=== PATIENT | male | born 1940 | race Caucasian/White ===

== ENCOUNTER 2016-07-07 09:00 | Inpatient (IN) | payer MEDICARE, BC ==
[~2016-07-07] VITALS: Ht 170.2 cm; Wt 77.9 kg
--- NOTE | ~2016-07-07 | DS ---
PATIENT'S NAME: [facility] AGE: 75 Y [address] ROOM: [place] [address] LOCATION: [facility] ADMIT DATE: 07/22/2016 Discharge Summary DISCHARGE DATE: 07/24/2016 FAMILY PHYSICIAN: Wayne Kevin MD ATTENDING PHYSICIAN: William Rose PRIMARY DIAGNOSIS: Osteoarthritis, left hip. SECONDARY DIAGNOSES: 1. History of alcohol abuse. 2. Restless legs syndrome. 3. Insomnia. 4. Hyperlipidemia. PROCEDURE PERFORMED: Left total hip arthroplasty. HISTORY: The patient is a 75-year-old male, who presents with advanced left hip degenerative joint disease and associated severely compromised activities of daily living. The patient has decided to proceed with total left hip arthroplasty after having been thoroughly counseled regarding the risks, benefits, limitations and alternatives. Please refer to the outpatient clinic notes and admission history and physical for this patient. HOSPITAL COURSE: The patient underwent a total left hip arthroplasty on 07/22/2016 without complications. Spinal anesthesia plus subcutaneous and periarticular local anesthesia was utilized. The patient received 24 hours of perioperative prophylactic antibiotics and remained hemodynamically stable, neurovascularly intact throughout the entire hospital course. The postoperative prophylactic deep venous thrombosis prophylaxis consisted of Xarelto 10 mg, early mobilization and pneumatic compression devices. Daily physical therapy for gait training, transfer training, and reinforcement of hip dislocation precautions were received. The patient progressed well in physical therapy. On the date of discharge, 07/24/2016, the incision at the hip was healing well and showed no signs of infection. DISPOSITION: Home. DISCHARGE ACTIVITY: The patient is to bear weight as tolerated with strict hip dislocation precautions as instructed. There are to be no dressing changes. Dr. Rose is to be notified immediately if there is any increased pain, fevers, chills, erythema, or drainage. DISCHARGE MEDICATIONS: Include, 1. Xarelto 10 mg, take 1 tablet p.o. daily for DVT prevention. 2. Oxycodone 5 mg, take 1 to 2 tablets p.o. every 4 hours as needed for PATIENT'S NAME: [facility] AGE: 75 Y [address] ROOM: [place] [address] LOCATION: [facility] ADMIT DATE: 07/22/2016 Discharge Summary DISCHARGE DATE: 07/24/2016 FAMILY PHYSICIAN: Wayne Kevin MD ATTENDING PHYSICIAN: William Rose. FOLLOWUP: Followup date is scheduled for Friday, July 29, 2016, for initial postoperative evaluation and x-ray at that time. KAMRAN GOODEN FOR WILLIAM ROSE MD TLB/modl /[id number] d: 07/28/1605 t: 07/29/16 1109, DISCHARGE SUMMARY
--- NOTE | ~2016-07-07 | OR ---
PATIENT'S NAME: [facility]O [facility] AGE: 75 Y [address] ROOM: [place] [address] LOCATION: [facility] ADMIT DATE: 07/22/2016 OR/Procedure Report DISCHARGE DATE: FAMILY PHYSICIAN: Wayne Kevin MD ATTENDING PHYSICIAN: WILLIAM ROSE SURGEON: William Rose MD DIRECTOR MISSION: Castro Johnson PA-C and Erik Kong RINKMAN/THEATRICAL VARIETY AGENT. DATE OF PROCEDURE: 07/22/2016 PRE-OP DIAGNOSIS: Primary osteoarthritis, left hip. POST-OP DIAGNOSIS: Primary osteoarthritis, left hip. OPERATION: Left total hip arthroplasty. ANESTHESIA: Spinal anesthesia plus subcutaneous and periarticular local anesthesia (ropivacaine with epinephrine). ESTIMATED BLOOD LOSS: Approximately 250 mL. DRAIN: None. SPECIMEN: None (photographic documentation of the femoral head was obtained). COMPLICATIONS: None. IMPLANTS: 1. Allamuchy Trident titanium size 58 mm hemispherical uncemented acetabular shell with 1 dome hole cover and no screws. 2. Allamuchy X3 neutral acetabular polyethylene liner with 36 mm inner diameter. 3. Allamuchy Accolade II, size seven, high offset, uncemented femoral component. 4. 36 mm diameter metallic femoral head with +0 mm neck length. INDICATION FOR SURGERY: Mr. Teo Zhou is a 75-year-old male who presents with advanced left hip primary osteoarthritis and associated severely compromised activities of daily living. The patient has decided to proceed with hip replacement after having been thoroughly counseled regarding the associated risks, benefits, and limitations. We have specifically reviewed the risks and implications of infection, deep venous thrombosis, pulmonary embolism, mortality, neurovascular complications, blood transfusion (and associated potential for disease transmission or transfusion reaction), stiffness, instability, leg length discrepancy, mechanical deterioration of PATIENT'S NAME: TEO [facility]HOU [facility] AGE: 75 Y [address] ROOM: [place] [address] LOCATION: [facility] ADMIT DATE: 07/22/2016 OR/Procedure Report DISCHARGE DATE: FAMILY PHYSICIAN: Wayne Kevin MD ATTENDING PHYSICIAN: WILLIAM ROSE the components (due to wear and to loosening), and the potential need for revision. DESCRIPTION OF PROCEDURE: The patient was positioned in a lateral decubitus position with the left side up after administration of anesthesia and prophylactic antibiotics. An axillary roll was placed and the non-operative leg was well padded. The pelvis was locked perpendicularly to the floor on a pegboard. The left hip and entire operative extremity were prepped and draped with vigilant sterile technique. The patient's name as well as the intended operative side and procedure were confirmed with a verbal time-out involving myself, the circulating nurse, the scrub nurse, and the anesthesiologist. The left hip was approached through a standard posterolateral incision. The fascia roe and the gluteus ann fascia were sharply divided in line with the overlying skin incision. The sciatic nerve was identified and was vigilantly protected throughout the entire case. The short external rotators and posterior capsule were divided from their respective femoral insertions and tagged with four #1 Ethibond sutures for later repair. The hip was posteriorly dislocated with combined flexion, adduction, and internal rotation. The femoral neck osteotomy was performed with an oscillating saw. Inspection of the femoral head demonstrated full thickness loss of articular cartilage involving the entire posterior superior aspect of the femoral head. There was a small osteophyte at the periphery of the femoral head. There was no femoral head collapse. Circumferential acetabular exposure was obtained. Inspection of examination of acetabulum demonstrated a moderate effusion consisting of benign appearing translucent synovial fluid. There was a small osteophyte at the anterior acetabulum. There was no dysplasia. Remnants of the acetabular labrum were sharply thoroughly excised. The acetabulum was sequentially progressively reamed up to 57 mm with hemispherical power reamers. The final acetabular shell was impacted into position in 20 degrees of anteversion and 45 degrees of inclination. An excellent press-fit was obtained. No supplemental dome screws fixation was necessary. A neutral trial liner was inserted. Attention was next focused upon femoral preparation. The femoral canal initiator was utilized. No reaming was performed (except for with a canal finder). The femoral canal was subsequently sequentially progressively broached up to a size 7. The size 7 broach obtained excellent axial and rotational stability. Trial reductions with the above specified construct yielded acceptable stability and acceptable reproduction of leg length and offset. All trial components were removed. PATIENT'S NAME: TEO [facility]HOU [facility] AGE: 75 Y [address] ROOM: [address] [address] LOCATION: [facility] ADMIT DATE: 07/22/2016 OR/Procedure Report DISCHARGE DATE: FAMILY PHYSICIAN: Wayne Kevin MD ATTENDING PHYSICIAN: WILLIAM ROSE The final acetabular liner was inserted with excellent circumferential visualization of its locking mechanism to assure adequate deployment. The final femoral component was impacted into position. The femoral component achieved excellent axial and rotational stability. The trunnion of the femoral component was vigilantly protected prior to placement of the femoral head. The trunnion of the femoral component was thoroughly cleaned and dried prior to placement of the femoral head. The incision was thoroughly irrigated with bacteriostatic pulsatile saline lavage multiple times throughout the case. The entire joint space was thoroughly inspected and thoroughly irrigated to assure that there was no residual debris of any sort. A final reduction was then performed. After final reduction, the hip could be firmly externally rotated in full extension and zero degrees of abduction without anterior subluxation. In neutral rotation and zero degrees of abduction, the hip could be firmly flexed to 120 degrees without instability. At 90 degrees of flexion and zero degrees abduction, the hip could be internally rotated to 60 degrees before there was any hint of posterior subluxation. The posterior capsule and short external rotators were repaired through two drill holes in the posterior aspect of the greater trochanter. The fascia roe and gluteus ann fascia were closed with multiple simple and [id number] interrupted # 1 Ethibond and #1 Vicryl sutures. Subcutaneous tissues were thoroughly re-irrigated with bacteriostatic pulsatile saline lavage. Subcutaneous tissues were re-approximated with simple buried interrupted #0 Vicryl sutures. The skin was closed with superficial buried interrupted 2-0 Vicryl sutures followed by a running subcuticular 3-0 Monocryl suture, followed by Octylseal, followed by Steri- Strips with benzoin, followed by an occlusive Mepilex dressing. There were no intra-operative complications. It should be noted that the physician's ict sales assistant played an active, integral role throughout this entire operation. By providing expert retraction, they greatly facilitated and expedited safe and effective exposure of the proximal femur and acetabulum for preparation and implantation of the components. They were also actively involved in the patient's positioning, prepping and draping, as well as wound closure. PATIENT'S NAME: TEO ZHOU [facility] AGE: 75 Y [address] ROOM: [address] [address] LOCATION: [facility] ADMIT DATE: 07/22/2016 OR/Procedure Report DISCHARGE DATE: FAMILY PHYSICIAN: Wayne Kevin MD ATTENDING PHYSICIAN: WILLIAM ROSE MD JMW/carson /[id number] d: 07/22/16 1301 t: 07/24/16 2036, OPERATIVE SUMMARY
[~2016-07-07 09:00] MED LIST: ADVIL200 MG PO; ALEVE220 MG PO; ASPIRIN EC81 MG PO; BIOFLEX TABLET1 EACH PO; DESYREL100 MG PO; FISH OIL 1,0001 EAC1 PO; LUMIGAN 0.01%2.5 ML OPHTH; OCUVITE WITH L1 EACH PO; VENLAFAXINE HC150 MG PO; VITAMIN D1000 UNIT PO
[2016-07-22] MEDS ORDERED: TYLENOL EXTRA500 MG PO (08:40)
[2016-07-22] MEDS ORDERED: MIRALAX17 GM PO (08:58)
--- NOTE | 2016-07-22 17:08 | NUR ---
Pt arrived on unit at 1400 from PACU. Spinal sensation was at knee upon arrival. Full sensation was obtained at approx 1700. Left hip mepiplex and transparent dressing c/d/i. Pt arrived on 2L oxygen and was decreased by RT to 1L. First hourly vital will be obtained at 1745. BP systolic has been in the high 90's - low 100's consistently since arrival. Diastolic ranging between 62-76. Pt has not voided since arriving. LS are clear in the upper lobes and clear and diminished in the lower.
--- NOTE | 2016-07-22 18:57 | NUR ---
I reviewed and approve of charting by Luigi Mijares,
--- NOTE | 2016-07-23 04:46 | NUR ---
Pt A&Ox3. SBPs from mid 90s-110s througout shift, MAPs >70. Titrated to RA. Dressing to left hip CDI, ice in place. CSM intact. Up with 1A GB and walker. Voiding and taking PO without difficulty. Pain well controlled, scheduled tylenol and PRN roxicodone, see EMAR. Pain rated 0-3 throughout shift.
--- NOTE | 2016-07-23 10:05 | NUR ---
Introduced self/role to patient and his Cierra, they live in [place]. has ordered their DME off of [employer] and will arrive on 07-25-16. Denied any barriers to discharge or at home. Patient stated the doctor told him he could go home today if he wanted to but at this point was leaning towards tomorrow. Added my name to his marker board, will continue to follow.
--- NOTE | 2016-07-23 17:52 | NUR ---
Pt alert and oriented x3. VSS. Systolic in 90's, diastolic in 50's. Last vitals taken 1523 BP was 90/54 in left arm, 100/54 in right. Pt voiding well today. Pt reported 2 BM. Pain ranging between 2-3. 1PA - pt needs reminded of proper gait and hip protocols.
--- NOTE | 2016-07-23 18:23 | NUR ---
I reviewed and approved charting by SN Eunice
--- NOTE | 2016-07-24 05:07 | NUR ---
Significant Event: Alert/oriented x3. Plans to go home today. Pain controlled effectively with Roxicodone at 2034, scheduled Tylenol, last at 0500. Voids well. VSS, CSM WNL. Dressing C/D/I. Ice pack applied. 2 BMs yesterday on day shift. Room air. Follow up:
[2016-07-24] MEDS ORDERED: COLACE100 MG PO (13:55)
[2016-07-24] MEDS ORDERED: XARELTO10 MG PO (13:57)
[2016-07-24] MEDS ORDERED: ROXICODONE 5MG (5 MG PO (13:58)
== END 2016-07-24 15:29 | disposition disaster alternative care site (69) | DRG 470 ==
LOC: G3N 07-22 08:13
PROVIDERS: ADMIT Orthopaedic Surgery
PROC: 0SRB0JA Replacement of Left Hip Joint with Synthetic Substitute, Uncemented, Open Approach (ICD-10-PCS; principal; 2016-07-22)
DX: M16.12 Unilateral primary osteoarthritis, left hip (principal); F32.9 Major depressive disorder, single episode, unspecified; G25.81 Restless legs syndrome; E78.5 Hyperlipidemia, unspecified; G47.00 Insomnia, unspecified; Z86.73 Personal history of transient ischemic attack (TIA), and cerebral infarction without residual deficits; K59.09 Other constipation
CPT/HCPCS: C1776; J0690; J1885; J2001; J2795; J7030; J7120

== ENCOUNTER → 2016-07-10 | Outpatient (CLI) | payer MEDICARE, BC ==
[~2016-07-10] MED LIST changes: +COLACE100 MG PO; +MIRALAX17 GM PO; +ROXICODONE 5MG (5 MG PO; +TYLENOL EXTRA500 MG PO; +XARELTO10 MG PO
== END | disposition disaster alternative care site (69) ==
LOC: GNJRC 10:51
DX: Z01.812 Encounter for preprocedural laboratory examination (principal); M16.12 Unilateral primary osteoarthritis, left hip